=== PATIENT | male | born 1985 | race Caucasian/White ===

== ENCOUNTER 2024-12-19 05:29 | Emergency (ER) | payer SELFPAY ==
[~2024-12-19] VITALS: Ht 177.8 cm; Wt 104.3 kg
[2024-12-19] MEDS ORDERED: AMOXICILLIN TRIHYDRATE 250 MG CAPSULE ONE (06:29)
[2024-12-19] MEDS: AMOXICILLIN TRIHYDRATE 500 MG CAPSULE PO ONE (06:30)
[2024-12-19] MEDS ORDERED: AMOX500C2 PO (06:32)
[2024-12-19 06:44] VITALS: BP 128/93; TEMP 98.1; O2SAT 97
== END 2024-12-19 06:44 | disposition home or self-care (01) ==
LOC: ER 05:33
DX: J03.90 Acute tonsillitis, unspecified (principal)